=== PATIENT | male | born 1950 | race Caucasian/White ===

== ENCOUNTER → 2016-09-24 08:17 | Outpatient (CLI) | payer MEDICAID ==
[~2016-09-24 08:17] MED LIST: HYDROCODON-ACE1 EAC7 PO; NEURONTIN 300300 MG PO
[2016-10-21 05:55] VITALS: BMI 21.8
== END | disposition home or self-care (01) ==
LOC: D.NM 08:17
DX: K82.8 Other specified diseases of gallbladder (principal)

== ENCOUNTER 2016-10-21 05:29 | Day surgery (SDC) | payer MEDICAID ==
[~2016-10-21] VITALS: Ht 165.1 cm; Wt 59.4 kg
[~2016-10-21 05:29] MED LIST changes: -HYDROCODON-ACE1 EAC7 PO
[2016-10-21 05:55] VITALS: BP 154/94; Ht 165.1 cm; Wt 59.4 kg
[2016-10-21] MEDS ORDERED: HYDROCODON-ACE1 EAC7 PO (09:11)
--- NOTE | 2016-10-21 11:17 | OP ---
PATIENT NAME: LENI BUTTS MEDICAL RECORD: [id number] :54 LOCATION:.[facility] ADMISSION DATE: SURGEON: SHARRI SHAH MD DATE OF OPERATION: 10/21/2016 SURGEON: Sharri Shah MD PREOPERATIVE DIAGNOSES: 1. Biliary dyskinesia. 2. Right upper quadrant pain. POSTOPERATIVE DIAGNOSES: 1. Biliary dyskinesia. 2. Right upper quadrant pain. PROCEDURE PERFORMED: Laparoscopic cholecystectomy. ANESTHESIA: General. COMPLICATIONS: None. SPECIMENS: Gallbladder. Case was clean contaminated. ESTIMATED BLOOD LOSS: 20 cc. OPERATIVE COURSE: After consent was obtained, the patient was taken to the operating room and placed in the supine position on the operating table. Next, general anesthesia was given via endotracheal intubation after a timeout was taken to confirm the correct patient and procedure. The abdomen was then prepped and draped in typical sterile fashion. Local anesthetic was injected just above the umbilicus. A stab incision was made with an 11-blade scalpel. Using a 5-mm bladeless optical trocar, the abdomen was entered under direct laparoscopic vision. Adequate pneumoperitoneum was achieved. The abdominal cavity was inspected. No evidence of bowel injury. No evidence of bleeding. The patient was then placed in the steep reverse Trendelenburg position. All remaining trocars were then placed after the administration of local anesthetic under direct laparoscopic vision, two 5-mm trocars in the right upper quadrant and 11-mm trocar in the subxiphoid position. The fundus of the gallbladder was grasped and retracted cephalad. The infundibulum was grasped and retracted laterally. The peritoneum was incised with electrocautery, blunt dissection was then performed a [place] dissector until the critical view was obtained. The cystic artery medial. The liver was in the posterior window. There was a very short cystic duct, likely less than 1-2 cm. Two clips were placed in the cystic artery. The cystic artery was then transected with laparoscopic Metzenbaum scissors. The gallbladder was transected at the mid portion of the very short cystic duct. The cystic duct stump was then oversewn with a 3-0 Prolene suture using a single [id number] suture. The remaining portion of the gallbladder was then dissected off the liver bed using electrocautery. Once complete, it was grasped with the tenaculum and removed through the 11-mm trocar and sent for permanent pathology. The operative site was copiously irrigated and suctioned. Careful attention was paid to hemostasis, which was obtained using electrocautery. The common bile duct was meticulously dissected. The cystic duct stump with the Prolene suture in place. There was no evidence of bile OPERATIVE REPORT [id number] LENI BUTTS leak. No evidence of bowel injury. There was no evidence of bleeding. The liver was inspected. No evidence of bleeding. No evidence of bile leak at this time. The abdominal cavity was inspected. No evidence of bowel injury. No evidence of bleeding. Again, the right upper quadrant skin reirrigated and suctioned. There was no evidence of bleeding or bile leak. At this time, all remaining instruments were removed. The abdomen was desufflated. Trocars were removed. Skin was closed with 4-0 Monocryl, Mastisol and Steri-Strips. At the end of the case, all needle and instrument counts were correct. No complications occurred. The patient extubated and transferred to the PACU in stable condition. TRANSINT:[id number] Voice Confirmation ID: [id number] DOCUMENT ID: [id number] SHARRI SHAH MD at 1117 CC: [id number] DICTATION DATE: 10/21/16916 MANAGER DAIRY: 10/21/16 1051 [facility] [address] [place] [address]
== END 2016-10-21 12:35 | disposition home or self-care (01) ==
LOC: D.OPS 05:29 → D.PAN 07:30 → D.OPS 07:30 → D.PAN 10:30 → D.OPS 12:35
DX: K82.8 Other specified diseases of gallbladder (principal); K21.9 Gastro-esophageal reflux disease without esophagitis; R10.11 Right upper quadrant pain

== ENCOUNTER 2016-12-02 15:57 | Emergency (ER) | payer MEDICAID ==
[2016-10-21 05:55] VITALS: BMI 21.8
[~2016-12-02 15:57] MED LIST changes: +HYDROCODON-ACE1 EAC7 PO
== END 2016-12-02 17:15 | disposition home or self-care (01) ==
LOC: D.ER 15:57
DX: K58.9 Irritable bowel syndrome, unspecified (principal); R14.3 Flatulence; R19.4 Change in bowel habit

== ENCOUNTER → 2017-01-02 08:36 | Outpatient (CLI) | payer MEDICAID ==
[2016-10-21 05:55] VITALS: BMI 21.8
== END | disposition home or self-care (01) ==
LOC: D.RAD 08:36
DX: R19.15 Other abnormal bowel sounds (principal)

== ENCOUNTER → 2018-03-16 08:33 | Outpatient (CLI) | payer MEDICARE ==
[2016-10-21 05:55] VITALS: BMI 21.8
== END | disposition home or self-care (01) ==
LOC: D.CT 08:33
DX: R10.9 Unspecified abdominal pain (principal)